=== PATIENT | male | born 1970 | race Caucasian/White ===

== ENCOUNTER → 2020-10-09 14:16 | Outpatient (CLI) | payer MEDICARE, OTHER, SELFPAY ==
--- NOTE | 2020-10-09 14:20 | CT_ITS ---
PROCEDURE: CT CHEST WO CON CLINICAL INDICATION: PUL NODULE ON CXR Solitary pulmonary nodule COMPARISON: CT [facility] CT CHEST W/O CONTRAST from 08/15/2013 CR CXR CHEST(2 VIEWS-NOT PORTABLE) from 01/14/2014 TECHNIQUE: Axial images obtained with sagittal and coronal reformats. All CT scans at the facility use one or more dose reduction, viz: automated exposure control, ma/kV adjustment per patient size (including targeted exams where dose is matched to indication, i.e. head), or iterative reconstruction technique. FINDINGS: HEART AND MEDIASTINAL STRUCTURES: No mediastinal or hilar adenopathy is evident. LUNGS AND PLEURAL SPACES: Paraseptal emphysematous change. There is a 3 x 2.2 x 2.6 cm solid mass in the right upper lobe which has developed in the interval. This extends to the pleural surface along its superior and posterior aspect. No bony involvement. This is highly suspicious for malignancy. No pleural effusion. Scarring is present in the right middle lobe. There is a vague 5 mm nodular opacity in the right middle lobe image 45 adjacent to a small pulmonary vessel. Atelectatic changes are also present in this region. Atelectatic or fibrotic changes are present in the lingula. BONY STRUCTURES: No acute bony abnormalities apparent. UPPER ABDOMEN: There is a moderate amount of retained colonic feces. The adrenal glands have an unremarkable appearance. No focal liver lesion identified. The most inferior aspect of the right hepatic lobe is not included on the exam. ADDITIONAL FINDINGS: No other significant abnormalities. IMPRESSION: 3 cm right upper lobe mass suspicious for malignancy. The mass is posterior in nature toward the apex and does abut the pleural surface. CT-guided biopsy would be very difficult due to its location which is deep to the scapula and posterior ribs.. Pulmonology consult suggested. Scattered areas of scarring. Vague 5 mm nodular opacity is present in the right middle lobe. This is nonspecific and could be post inflammatory or neoplastic in origin. Paraseptal emphysematous change Dictated by: Parish Brandon MD 10/10/2020 08:37 Parish Brandon MD in [place] 10/10/2020 08:37
== END ==
PROVIDERS: PCP Emergency Medicine; Visit Provider Emergency Medicine
DX: R91.1 Solitary pulmonary nodule (principal)
CPT/HCPCS: 71250